=== PATIENT | female | born 1930 | race Caucasian/White ===

== ENCOUNTER 2020-11-21 20:25 | Inpatient (IN) | payer MEDICARE, OTHER ==
--- NOTE | 2020-11-21 21:14 | ED ---
GI Bleed HPI - General Chief complaint: GI Bleed Stated complaint: GI Bleed Time Seen by Provider: 11/21/20 20:57 Source: patient, EMS Mode of arrival: EMS Limitations: no limitations - History of Present Illness Initial comments: This patient is an 89-year-old woman who arrives here as a transfer from [facility]. The patient states that she had gone there because she was passing bloody stools. The patient states this started approximately 11 AM. She had a total of 3 bloody stools, and then she believes she may have passed another one just after arrival here. The patient denies any associated abdominal pain. No nausea or vomiting. She denies history of previous GI bleeding. From the other hospital, the patient had a hemoglobin of 10. INR is 1.0, and the patient denies taking any blood thinning medicines though she does take an aspirin a day. Patient denies history of previous abdominal conditions or any history of GI bleeding. Remainder of the patient's labs largely unremarkable. Other review of systems, the patient denies any other complaints, including symptoms of anemia. MD complaint: gross hematochezia Onset/Timin -: hour(s) Radiation: none Severity scale (1-10): 0 Quality: painless Consistency: constant Improves with: none Worsens with: none Associated Symptoms: denies other symptoms Treatments Prior to Arrival: none - Related Data Home Medications Medication Instructions Recorded Confirmed Aspirin EC [Ecotrin] 325 mg PO DAILY 11/21/20 11/21/20 Atorvastatin Calcium [Lipitor] 20 mg PO Q48H 11/21/20 11/21/20 Cephalexin [Keflex] 500 mg PO DAILY 11/21/20 11/21/20 Cranberry Fruit Extract [Cranberry] 500 mg PO DAILY 11/21/20 11/21/20 Estradiol Cream [Estrace Cream 1 applic VAGINAL MOFR 11/21/20 11/21/20 0.01%] Furosemide [Lasix] 20 mg PO DAILY PRN 11/21/20 11/21/20 Losartan Potassium 100 mg PO DAILY 11/21/20 11/21/20 Methenamine Hippurate 1 gm PO DAILY 11/21/20 11/21/20 Metoprolol Tartrate [Lopressor] 12.5 mg PO BID 11/21/20 11/21/20 Sertraline [Zoloft] 50 mg PO DAILY 11/21/20 11/21/20 Tamsulosin HCl [Flomax] 0.4 mg PO HS 11/21/20 11/21/20 Previous Rx's Medication Instructions Recorded LORazepam [Ativan] 0.25 mg PO BID PRN #6 tab 11/25/20 Pantoprazole Sodium [Protonix] 40 mg PO AC-BRKFST #30 tablet. 11/25/20 Allergies Allergy/AdvReac Type Severity Reaction Status Date / Time codeine AdvReac Unknown Verified 11/21/20 21:56 nitrofurantoin AdvReac Rash/Hives Verified 11/21/20 21:56 Review of Systems ROS Statement: Those systems with pertinent positive or pertinent negative responses have been documented in the HPI. ROS Other: All systems not noted in ROS Statement are negative. Constitutional: Denies: fever, chills, weakness Respiratory: Denies: cough, dyspnea Cardiovascular: Denies: chest pain, palpitations, edema, syncope Gastrointestinal: Reports: hematochezia. Denies: abdominal pain, nausea, vomiting, diarrhea, melena Genitourinary: Denies: dysuria, hematuria Musculoskeletal: Denies: back pain Skin: Denies: rash Neurological: Denies: headache, weakness, numbness Past Medical History Past Medical History: Hyperlipidemia, Hypertension Past Surgical History: Unable to Obtain Additional Past Surgical History / Comment(s): poor historian Past Psychological History: No Psychological Hx Reported Smoking Status: Never smoker Past Alcohol Use History: None Reported Past Drug Use History: None Reported - Past Family History Father Family Medical History: CVA/TIA Mother Family Medical History: Myocardial Infarction ([place]) General Exam Limitations: no limitations General appearance: alert, in no apparent distress Head exam: Present: atraumatic, normocephalic Eye exam: Present: normal appearance. Absent: scleral icterus, conjunctival injection ENT exam: Present: normal oropharynx Neck exam: Present: normal inspection Respiratory exam: Present: normal lung sounds bilaterally. Absent: respiratory distress, wheezes, rales, rhonchi, stridor Cardiovascular Exam: Present: regular rate, normal rhythm, normal heart sounds. Absent: systolic murmur, diastolic murmur, rubs, gallop GI/Abdominal exam: Present: soft. Absent: distended, tenderness, guarding, rebound, rigid, mass Extremities exam: Present: normal inspection, normal capillary refill. Absent: pedal edema, calf tenderness Back exam: Present: normal inspection. Absent: CVA tenderness (R), CVA tenderness (L) Neurological exam: Present: alert Skin exam: Present: warm, dry, intact, normal color. Absent: rash Course Vital Signs 11/21/20 11/21/20 11/21/20 20:42 22:00 23:30 Temperature 97.9 F Pulse Rate 94 89 90 Respiratory 18 16 16 Rate Blood Pressure 134/67 119/55 109/52 O2 Sat by Pulse 99 99 98 Oximetry Medical Decision Making - Lab Data Result diagrams: 11/25/20 08:31 11/25/20 08:50 - EKG Data -: EKG Interpreted by Me EKG shows normal: sinus rhythm, axis (Normal), intervals (Normal), QRS complexes (Normal), ST-T waves (Normal) Rate: normal (Rate 85 bpm) Disposition Clinical Impression: Acute GI bleeding, Anemia Disposition: ADMITTED IP TO THIS [facility] Condition: Stable Is patient prescribed a controlled substance at d/c from ED?: No
[2020-11-21] MEDS ORDERED: ONDANSETRON 4 MG/2 ML VIAL IVP PRN (22:08)
[2020-11-21] MEDS ORDERED: ACETAMINOPHEN TAB 325 MG TAB PO PRN (22:08)
[2020-11-21] MEDS ORDERED: NALOXONE 0.4 MG/ML 1 ML VIAL IV PRN (22:08)
[2020-11-21] MEDS ORDERED: PANTOPRAZOLE 40 MG/10 ML VIAL IVP STA (22:12)
[2020-11-21 22:37] LABS: Basophils % (A) 0 %; Eosinophils % (A) 0 %; HCT 25.5 % (34.0-46.0); HGB 8.8 gm/dL (11.4-16.0); Lymphocytes # (A) 1.2 k/uL (1.0-4.8); Lymphocytes % (A) 16 %; MCH 31.6 pg (25.0-35.0); MCHC 34.4 g/dL (31.0-37.0); Mean Platelet Volume 7.8; Monocytes # (A) 0.3 k/uL (0-1.0); Monocytes % (A) 4 %; Neutrophils # (A) 5.6 k/uL (1.3-7.7); Neutrophils % (A) 78 %; Platelet Count 260 k/uL (150-450); RBC 2.77 m/uL (3.80-5.40); RDW 12.4 % (11.5-15.5); WBC 7.2 k/uL (3.8-10.6)
[2020-11-21] MEDS: SODIUM CHLORIDE 0.9% 1,000 ML IV SCH (23:54)
[2020-11-22] MEDS ORDERED: TAMSULOSIN 0.4 MG CAP.ER.24H PO SCH ×2 (01:30→21:00)
[2020-11-22] MEDS: LORazepam 0.5 MG TAB PO PRN ×2 (01:55→22:46)
[2020-11-22] MEDS: PANTOPRAZOLE 40 MG/10 ML VIAL IVP SCH (08:25)
[2020-11-22] MEDS: METOPROLOL TARTRATE 12.5 MG TAB PO SCH ×2 (08:25→20:34)
[2020-11-22] MEDS: ATORVASTATIN 20 MG TAB PO SCH (08:25)
[2020-11-22 08:27] LABS: Basophils % (A) 0 %; Eosinophils % (A) 0 %; HCT 23.5 % (34.0-46.0); HGB 7.5 gm/dL (11.4-16.0); Lymphocytes # (A) 2.1 k/uL (1.0-4.8); Lymphocytes % (A) 26 %; MCH 30.6 pg (25.0-35.0); MCHC 31.9 g/dL (31.0-37.0); MCV 95.9 fL (80.0-100.0); Mean Platelet Volume 6.6; Monocytes # (A) 0.4 k/uL (0-1.0); Monocytes % (A) 5 %; Neutrophils # (A) 5.3 k/uL (1.3-7.7); Neutrophils % (A) 67 %; Platelet Count 286 k/uL (150-450); RBC 2.45 m/uL (3.80-5.40); RDW 13.1 % (11.5-15.5); WBC 7.9 k/uL (3.8-10.6)
[2020-11-22] MEDS: TAMSULOSIN 0.4 MG CAP.ER.24H PO SCH (08:45)
[2020-11-22 12:31] LABS: African American GFR (CKD) >90 (>60 ml/min/1.73 sqM); Anion Gap 7 mmol/L; Blood Urea Nitrogen 22 mg/dL (7-17); Calcium 8.5 mg/dL (8.4-10.2); Carbon Dioxide 18 mmol/L (22-30); Chloride 105 mmol/L (98-107); Glucose 98 mg/dL (74-99); Non-African American GFR(CKD) 79 (>60 ml/min/1.73 sqM); Potassium 3.9 mmol/L (3.5-5.1); Sodium 130 mmol/L (137-145)
[2020-11-22] MEDS ORDERED: PEG 3350-NA SULF,BICARB,CL/KCL 4,000 ML BOTTLE PO ONE (14:22)
--- NOTE | 2020-11-22 16:13 | CONS ---
CONSULTATION DATE OF DICTATION: 11/22/2020 REASON FOR CONSULTATION: Acute GI bleed. HISTORY OF PRESENT ILLNESS: The patient is an 89-year-old pleasant white female transferred from [facility] when she presented with multiple episodes of maroon-colored stools followed by bright red blood per rectum. She had about 3 episodes at home and she went to the emergency room at [facility], where she had another two episodes, and she was transferred from there late last night. Since being here, she had another 3 episodes of bloody bowel movement. She dropped her hemoglobin from 10 to 7.5 g/dL. She denies any abdominal pain. No nausea, no vomiting. Never had EGD or colonoscopy in the past. She denies any recent NSAID use. No prior history of peptic ulcer disease. Her initial hemoglobin was 10 g/dL. It subsequently dropped to 8.8 and currently is 7.5 g/dL. PAST MEDICAL HISTORY: Significant for hypertension, hyperlipidemia, anxiety, depression. MEDICATIONS: Medications at home include Lasix, Flomax, Ecotrin, Zoloft, Lopressor, losartan, Ativan, Keflex and Lipitor. ALLERGIES: CODEINE and NITROFURANTOIN. SOCIAL HISTORY: No smoking. No alcohol use. FAMILY HISTORY: Unremarkable. PAST SURGICAL HISTORY: Unremarkable. REVIEW OF SYSTEMS: CARDIOPULMONARY: She denies any chest pain or shortness of breath. GENITOURINARY: No dysuria or hematuria. MUSCULOSKELETAL: Unremarkable. SKIN: Unremarkable. ENDOCRINE: Unremarkable. PSYCHIATRIC: Unremarkable other than anxiety. NEUROLOGY: Unremarkable. ENT/VISION: Unremarkable. CONSTITUTIONAL: No recent weight loss. No fever, chills, night sweats. PHYSICAL EXAMINATION: She appears comfortable. No apparent distress. VITAL SIGNS: Stable. Blood pressure 106/55, pulse rate 83, temperature 98.1. HEENT examination unremarkable. Conjunctivae pink. Sclerae anicteric. Oral cavity no lesions. NECK: No JVD or lymph node enlargement. CHEST: Clear to auscultation. HEART: Regular rate and rhythm. ABDOMEN: Soft. Bowel sounds are positive. No organomegaly. EXTREMITIES: No pedal edema. NEUROLOGIC: Alert and oriented x3. No focal deficits. LAB: Hemoglobin 8.8. Today it is 7.5. Platelets normal. Basic metabolic panel is within normal limits. IMPRESSION: Acute gastrointestinal bleed, possibly lower in etiology, but at this time an upper GI source cannot be excluded. The patient had several episodes of bright red blood per rectum as well as maroon-colored stool since yesterday morning. Never had EGD, colonoscopy in the past. No history of peptic ulcer disease and she denies any NSAID use. Her hemoglobin dropped from 10 to 7.5 g/dL and she continues to have active ongoing bleeding. RECOMMENDATIONS: 1. Continue with Protonix 40 mg twice daily. 2. Clear liquid diet. 3. Will proceed with EGD and colonoscopy tomorrow. 4. Will give her one unit of PRBC transfusion because of active bleeding. 5. Repeat CBC in the morning. Will follow with you closely. Thank you for this consultation. MMODL / IJN: [id number] /
[2020-11-22] MEDS: SODIUM CHLORIDE 0.9% 1,000 ML IV SCH ×2 (18:22→20:37)
--- NOTE | 2020-11-22 20:17 | P.HPIM ---
History of Present Illness H&P Date: 11/22/20 Chief Complaint: Rectal bleed Patient is a 89-year-old female with a known history of hypertension, hyperlipidemia presents to ER with a complaints of rectal bleeding. Patient states that she woke yesterday morning and felt somewhat weak. Around 11 AM patient started having blood per rectum and was passing blood clots. Patient went to [facility] and was sent to [facility] for GI evaluation. Denies any history of prior colonoscopy or GI bleed. Patient states that she is passed a total of 3 bloody stools. Currently denies any active bleeding. Hemoglobin at [facility] was 10 and INR 1.0. Patient denied any [id number] pain medication use. Denied any tarry colored stools. Patient does take aspirin daily. No history of previous GI bleed. Patient denied any abdominal pain. No dysuria or hematuria. No recent illnesses or sick contacts. No recent travel.No complaints of chest pain or shortness of breath. Laboratory data showed WBC 7.2 hemoglobin 8.8 MCV 92.0 and platelets 260 Sodium 130 potassium 3.9 chloride 104 bicarb is 18 BUN 22 and creatinine 0.64 and coronavirus PCR not detected EKG showed normal sinus rhythm Review of Systems Constitutional: Patient denies any fever or chills . No generalized weakness or weight loss. Abdomen: Patient denied nausea vomiting and diarrhea and abdominal pain.Patient does have blood per rectum. Cardiovascular: Patient denies any chest pain or short of breath no palpitations. Respiratory: patient denied any cough or sputum production. No shortness of breath Neurologic: Patient denied any numbness or tingling headache. Musculoskeletal: Patient denies any complaints of joint swelling or deformity. Skin: Negative Psychiatric: Negative Endocrine: No heat or cold intolerance. No recent weight gain. Genitourinary: No dysuria or hematuria. All other 14 point ROS negative except the above Past Medical History Past Medical History: Hyperlipidemia, Hypertension Additional Past Medical History / Comment(s): FREQ UTI'S History of Any Multi-Drug Resistant Organisms: None Reported Past Surgical History: No Surgical Hx Reported, Unable to Obtain Additional Past Surgical History / Comment(s): poor historian Past Anesthesia/Blood Transfusion Reactions: No Reported Reaction Past Psychological History: No Psychological Hx Reported Smoking Status: Never smoker Past Alcohol Use History: None Reported Past Drug Use History: None Reported - Past Family History Father Family Medical History: CVA/TIA Mother Family Medical History: Myocardial Infarction ([place]) Medications and Allergies Home Medications Medication Instructions Recorded Confirmed Type Aspirin EC [Ecotrin] 325 mg PO DAILY 11/21/20 11/21/20 History Atorvastatin Calcium [Lipitor] 20 mg PO Q48H 11/21/20 11/21/20 History Cephalexin [Keflex] 500 mg PO DAILY 11/21/20 11/21/20 History Cranberry Fruit Extract [Cranberry] 500 mg PO DAILY 11/21/20 11/21/20 History Estradiol Cream [Estrace Cream 1 applic VAGINAL MOFR 11/21/20 11/21/20 History 0.01%] Furosemide [Lasix] 20 mg PO DAILY PRN 11/21/20 11/21/20 History LORazepam [Ativan] 0.25 mg PO BID PRN 11/21/20 11/21/20 History Losartan Potassium 100 mg PO DAILY 11/21/20 11/21/20 History Methenamine Hippurate 1 gm PO DAILY 11/21/20 11/21/20 History Metoprolol Tartrate [Lopressor] 12.5 mg PO BID 11/21/20 11/21/20 History Sertraline [Zoloft] 50 mg PO DAILY 11/21/20 11/21/20 History Tamsulosin HCl [Flomax] 0.4 mg PO HS 11/21/20 11/21/20 History Allergies Allergy/AdvReac Type Severity Reaction Status Date / Time codeine AdvReac Unknown Verified 11/21/20 21:56 nitrofurantoin AdvReac Rash/Hives Verified 11/21/20 21:56 Physical Exam Vitals: Vital Signs Temp Pulse Pulse Resp BP BP Pulse Ox 11/22/20 08:20 98.1 F 83 16 106/55 97 11/22/20 08:00 83 16 11/22/20 04:00 97.8 F 93 18 90/48 96 11/22/20 02:00 94 16 11/22/20 00:25 97.7 F 94 18 101/55 100 11/21/20 23:30 90 16 109/52 98 11/21/20 22:00 89 16 119/55 99 11/21/20 20:42 97.9 F 94 18 134/67 99 Intake and Output 11/21/20 11/22/20 11/22/20 22:59 06:59 14:59 Output Total 500 Balance -500 Output: Urine 100 Stool 400 Other: Voiding Method Toilet Toilet # Voids 1 # Bowel Movements 1 Weight 68.039 kg 68 kg PHYSICAL EXAMINATION: Patient is lying in the bed comfortably, no acute distress, awake alert and oriented.. HEENT: Normocephalic. Neck is supple. Pupils reactive. Nostrils clear. Oral cavity is moist. Ears reveal no drainage. Neck reveals no JVD, carotid bruits, or thyromegaly. CHEST EXAMINATION: Trachea is central. Symmetrical expansion. Lung luque clear to auscultation and percussion. CARDIAC: Normal S1, S2 with no gallops. No murmurs ABDOMEN: Soft. Bowel sounds normal. No organomegaly. No abdominal bruits. Extremities: reveal no edema. No clubbing or cyanosis Neurologically awake, alert, oriented x3 with well-coordinated movements. No focal deficits noted Skin: No rash or skin lesions. Psychiatric: Coperative. Nonsuicidal Musculoskeletal: No joint swelling or deformity. Normal range of motion. Results CBC & Chem 7: 11/22/20 07:31 11/22/20 11:49 Labs: Abnormal Lab Results - Last 24 Hours (Table) 11/21/20 11/22/20 Range/Units 22:29 07:31 RBC 2.77 L 2.45 L (3.80-5.40) m/uL Hgb 8.8 L 7.5 L (11.4-16.0) gm/dL Hct 25.5 L 23.5 L (34.0-46.0) % Thrombosis Risk Factor Assmnt - DVT/VTE Prophylaxis DVT/VTE Prophylaxis: Mechanical Prophylaxis ordered - Choose All That Apply Each Risk Factor Represents 3 Points: Age 75 years or older Thrombosis Risk Factor Assessment Total Risk Factor Score: 3 Thrombosis Risk Factor Assessment Level: Moderate Risk Assessment and Plan Assessment: Acute GI bleed/rectal bleed likely diverticular bleed. Acute blood loss anemia Symptomatic anemia Hypertension Hyperlipidemia DVT prophylaxis with SCDs Plan: Patient will be continued on IV hydration and Protonix IV daily. Continue to monitor H&H and transfuse if the hemoglobin level is less than 7. Gastroenterology service was consulted.. Aspirin is on hold and continue with other home medications and follow-up closely. Further recommendations based on clinical course. Discussed with the patient in detail. Gastroenterology is planning for colonoscopy tomorrow. Time with Patient: Greater than 30
[2020-11-22 22:45] LABS: Basophils % (A) 0 %; Eosinophils # (A) 0.1 k/uL (0-0.7); Eosinophils % (A) 1 %; HCT 24.5 % (34.0-46.0); HGB 8.7 gm/dL (11.4-16.0); Lymphocytes # (A) 1.1 k/uL (1.0-4.8); Lymphocytes % (A) 14 %; MCH 32.6 pg (25.0-35.0); MCHC 35.5 g/dL (31.0-37.0); MCV 91.9 fL (80.0-100.0); Mean Platelet Volume 6.8; Monocytes # (A) 0.6 k/uL (0-1.0); Monocytes % (A) 8 %; Neutrophils # (A) 5.8 k/uL (1.3-7.7); Neutrophils % (A) 76 %; Platelet Count 240 k/uL (150-450); RBC 2.67 m/uL (3.80-5.40); RDW 12.7 % (11.5-15.5); WBC 7.7 k/uL (3.8-10.6)
[2020-11-23] MEDS ORDERED: IV FLUID CONTINUATION 1,000 ML IV ONE (08:04)
[2020-11-23] MEDS ORDERED: PROPOFOL 10 MG/ML 20 ML VIAL IV ONE (08:10)
[2020-11-23] MEDS ORDERED: EPINEPHrine 10 ML SYRINGE (0.1 MG/ML) MISCELLANE ONE (08:42)
--- NOTE | 2020-11-23 08:46 | P.PCN ---
Date of Procedure: 11/23/20 Procedure(s) Performed: Brief history: Patient is a pleasant 89-year-old pleasant white female admitted hospital with acute GI bleed. She had multiple episodes of what constitutes followed by bright red blood per rectum and Hemoglobin of 7.5 g/dL requiring a flat ulceration. She is hence scheduled for an upper endoscopy as well as colonoscopy to evaluate further. Procedure performed: Esophagogastroduodenoscopy with biopsy Colonoscopy with injection epinephrine and Endo Clip placement Preoperative diagnosis: Acute GI bleed Anesthesia: MAC Procedure: After informed consent was obtained from the patient was brought into the endoscopy unit and IV sedation was administered by anesthesia under continuous monitoring. Initially upper endoscopy was done. The Olympus GF 160 video endoscope was inserted inserted into the mouth and esophagus intubated without any difficulty and was gradually advanced into the stomach and duodenum and carefully examined. The bulb and second part of the duodenum appeared normal. The scope was then withdrawn into the stomach adequately insufflated with air and upon careful examination the antrum had a 5 mm clean-based ulcer with no active bleeding and biopsies were done from this area. The body, cardia and fundus appeared normal. The scope was then withdrawn into the esophagus. The GE junction was located at 40 cm to the incisors. It appeared regular with no erythema erosions or ulcerations. Rest of the esophagus appeared normal. Patient tolerated the procedure well. At this time the patient continued to remain sedation. Initial digital rectal examination was normal. Olympus CF 160 video colonoscope was then inserted into the rectum and gradually advanced to the cecum without any difficulty. Careful examination was performed as the scope was gradually being withdrawn. The prep was excellent. There was thin liquid blood noted throughout the entire colon. Thorough irrigation was performed. The cecum, ascending colon, transverse colon, descending colon, appeared normal. In the proximal sigmoid colon at 35 cm from the anal verge there was an actively bleeding diverticulum noted. At this time 1 in 10,000 epinephrine was injected into the diverticulum and good hemostasis was achieved. Following this Endo Clip was placed blindly into the diverticulum and still good hemostasis was achieved. Large clot noted in the sigmoid colon that was thoroughly irrigated. There was sigmoid colon and rectum appeared normal. Retroflexion was performed in the rectum and no lesions were noted. Patient tolerated the procedure well. Impression: 1. Upper endoscopy revealed 5 mm antral ulcer with no active bleeding 2. Colonoscopy revealed extensive left-sided diverticulosis, with one of the diverticulum in the sigmoid colon at 35 cm from the anal verge that was actively bleeding, status post injection epinephrine and Endo Clip placement with good hemostasis Recommendations: Findings of this examination were discussed with the patient . she will be started on a clear liquid diet. Monitor CBC every 6 hours and transfuse as needed. .
[2020-11-23] MEDS: TAMSULOSIN 0.4 MG CAP.ER.24H PO SCH (10:06)
[2020-11-23] MEDS: METOPROLOL TARTRATE 12.5 MG TAB PO SCH ×2 (10:06→20:06)
[2020-11-23] MEDS: PANTOPRAZOLE 40 MG/10 ML VIAL IVP SCH (10:06)
[2020-11-23 12:47] LABS: Calcium 8.1 mg/dL (8.4-10.2)
[2020-11-23 12:48] LABS: MCH 30.9 pg (25.0-35.0); MCHC 32.6 g/dL (31.0-37.0); MCV 94.9 fL (80.0-100.0); Mean Platelet Volume 6.9; Platelet Count 221 k/uL (150-450); RBC 2.11 m/uL (3.80-5.40); RDW 13.7 % (11.5-15.5); WBC 6.5 k/uL (3.8-10.6)
[2020-11-23 12:54] LABS: HGB 6.5 gm/dL (11.4-16.0)
[2020-11-23] MEDS: LORazepam 0.5 MG TAB PO PRN (20:06)
[2020-11-23] MEDS: SODIUM CHLORIDE 0.9% 1,000 ML IV SCH (20:07)
[2020-11-23] MEDS: POTASSIUM CHLORIDE 10 MEQ in WATER FOR INJECTION 1 100ML.BAG IVPB SCH (23:11)
[2020-11-24] MEDS: POTASSIUM CHLORIDE 10 MEQ in WATER FOR INJECTION 1 100ML.BAG IVPB SCH (00:12)
[2020-11-24] MEDS: SODIUM CHLORIDE 0.9% 1,000 ML IV SCH ×2 (04:08→19:02)
[2020-11-24] MEDS: PANTOPRAZOLE 40 MG/10 ML VIAL IVP SCH (08:06)
[2020-11-24] MEDS: METOPROLOL TARTRATE 12.5 MG TAB PO SCH ×2 (08:06→21:19)
[2020-11-24] MEDS: TAMSULOSIN 0.4 MG CAP.ER.24H PO SCH (08:07)
[2020-11-24] MEDS: ATORVASTATIN 20 MG TAB PO SCH (08:07)
--- NOTE | 2020-11-24 08:51 | PN ---
PROGRESS NOTE DATE OF SERVICE: 11/24/2020 Patient is an 89-year-old pleasant white female admitted to the hospital with acute lower GI bleed. She underwent EGD and colonoscopy yesterday. Colonoscopy revealed actively bleeding sigmoid diverticula and epinephrine was injected and Endoclip was placed and bleeding subsided. The patient since has been doing well. She had no further episodes of bleeding. She did drop her hemoglobin to 6.5 g/dL yesterday and was given another unit of blood transfusion. Repeat CBC this morning is still pending. She reports no abdominal pain. No dizziness. PHYSICAL EXAMINATION: GENERAL: She appears comfortable. No apparent distress. VITAL SIGNS: Stable. Blood pressure 122/86, pulse rate 75, afebrile. HEENT: Examination unremarkable. Conjunctivae are pink. Sclerae anicteric. Oral cavity no lesions. NECK: No JVD or lymph node enlargement. CHEST: Clear to auscultation. HEART: Regular rate and rhythm. ABDOMEN: Soft, it was nontender, nondistended. Bowel sounds are positive. No organomegaly. EXTREMITIES: No pedal edema. NEURO: She is alert and oriented x3. No focal deficits. LABS: No labs available from today but yesterday hemoglobin was 6.5 g/dL. IMPRESSION: Acute lower GI bleed, diverticular in nature, status post EGD and colonoscopy yesterday. Colonoscopy revealed actively bleeding sigmoid diverticulosis, status post injection of epinephrine with Endoclip placement. Hemostasis achieved. The patient has no further bleeding. Repeat CBC this morning is still pending. RECOMMENDATIONS: 1. Await CBC results. 2. Advance to full liquid diet. 3. Repeat labs in the morning. We will follow with you closely. If she has no further bleeding, she can be discharged home tomorrow. Thank you for this consultation. MMODL / IJN: [id number] /
[2020-11-24 11:34] LABS: Basophils % (A) 0 %; Eosinophils % (A) 1 %; HGB 7.1 gm/dL (11.4-16.0); Lymphocytes # (A) 1.5 k/uL (1.0-4.8); Lymphocytes % (A) 29 %; MCH 32.1 pg (25.0-35.0); MCHC 35.3 g/dL (31.0-37.0); Mean Platelet Volume 6.9; Monocytes # (A) 0.4 k/uL (0-1.0); Monocytes % (A) 7 %; Neutrophils # (A) 3.2 k/uL (1.3-7.7); Neutrophils % (A) 62 %; Platelet Count 176 k/uL (150-450); RDW 13.5 % (11.5-15.5); WBC 5.2 k/uL (3.8-10.6)
[2020-11-24 15:38] LABS: African American GFR (CKD) >90 (>60 ml/min/1.73 sqM); Anion Gap 6 mmol/L; Blood Urea Nitrogen 9 mg/dL (7-17); Calcium 8.2 mg/dL (8.4-10.2); Carbon Dioxide 19 mmol/L (22-30); Chloride 106 mmol/L (98-107); Glucose 92 mg/dL (74-99); Non-African American GFR(CKD) 79 (>60 ml/min/1.73 sqM); Potassium 3.2 mmol/L (3.5-5.1); Sodium 131 mmol/L (137-145)
[2020-11-24] MEDS ORDERED: Potassium Replacement Protocol 1 EACH MISC MISCELLANE PRN (17:33)
[2020-11-24] MEDS: POTASSIUM CHLORIDE ER 20 MEQ TAB.ER PO SCH ×2 (19:02→21:19)
[2020-11-24] MEDS: LORazepam 0.5 MG TAB PO PRN (21:22)
[2020-11-25] MEDS ORDERED: LORazepam 0.5 MG TAB PO STA (03:13)
[2020-11-25 03:45] VITALS: RESP 18
[2020-11-25] MEDS: SODIUM CHLORIDE 0.9% 1,000 ML IV SCH ×2 (06:22→12:05)
[2020-11-25 08:44] VITALS: TEMP 97.6
[2020-11-25] MEDS: TAMSULOSIN 0.4 MG CAP.ER.24H PO SCH (08:45)
[2020-11-25] MEDS: METOPROLOL TARTRATE 12.5 MG TAB PO SCH (08:45)
[2020-11-25] MEDS: PANTOPRAZOLE 40 MG/10 ML VIAL IVP SCH (08:45)
[2020-11-25] MEDS ORDERED: CEPHALEXIN 500 MG CAP PO SCH (09:00)
[2020-11-25 09:09] LABS: HCT 28.9 % (34.0-46.0); MCH 31.5 pg (25.0-35.0); MCHC 33.8 g/dL (31.0-37.0); MCV 93.4 fL (80.0-100.0); Mean Platelet Volume 6.8; Platelet Count 224 k/uL (150-450); RDW 13.9 % (11.5-15.5); WBC 7.5 k/uL (3.8-10.6)
[2020-11-25 09:13] LABS: HGB 9.8 gm/dL (11.4-16.0)
[2020-11-25 11:08] VITALS: BP 175/71; PULSE 86
[2020-11-25] MEDS ORDERED: LOSARTAN 50 MG TAB PO SCH (11:30)
[2020-11-25] MEDS ORDERED: POTASSIUM CHLORIDE ER 20 MEQ TAB.ER PO STA (11:50)
--- NOTE | 2020-11-25 12:20 | P.PN ---
Subjective Progress Note Date: 11/23/20 Principal diagnosis: Acute GI bleed diverticular Patient is a 89-year-old female with a known history of hypertension, hyperlipidemia presents to ER with a complaints of rectal bleeding. Patient states that she woke yesterday morning and felt somewhat weak. Around 11 AM patient started having blood per rectum and was passing blood clots. Patient went to [facility] and was sent to [facility] for GI evaluation. Denies any history of prior colonoscopy or GI bleed. Patient states that she is passed a total of 3 bloody stools. Currently denies any active bleeding. Hemoglobin at [facility] was 10 and INR 1.0. Patient denied any jrgb-pne-irzvlwh pain medication use. Denied any tarry colored stools. Patient does take aspirin daily. No history of previous GI bleed. Patient denied any abdominal pain. No dysuria or hematuria. No recent illnes ses or sick contacts. No recent travel.No complaints of chest pain or shortness of breath. Laboratory data showed WBC 7.2 hemoglobin 8.8 MCV 92.0 and platelets 260 Sodium 130 potassium 3.9 chloride 104 bicarb is 18 BUN 22 and creatinine 0.64 and coronavirus PCR not detected EKG showed normal sinus rhythm 11/23/2020 Patient is currently lying in the bed. No complaints of abdominal pain. No fu rther episodes of bleeding. Patient is status post procedure. 1. Upper endoscopy revealed 5 mm antral ulcer with no active bleeding 2. Colonoscopy revealed extensive left-sided diverticulosis, with one of the diverticulum in the sigmoid colon at 35 cm from the anal verge that was actively bleeding, status post injection epinephrine and Endo Clip placement with good hemostasis. Hemoglobin is 6.1 today. Patient is being transfused with 1 unit of PRBC. No headache or dizziness or lightheadedness. Next and no chest pain or shortness of breath. Current medications reviewed. Objective - Vital Signs Vital signs: Vital Signs Temp 98.1 F 11/23/20 15:29 Pulse 81 11/23/20 15:29 Resp 18 11/23/20 15:29 BP 130/59 11/23/20 15:29 Pulse Ox 95 11/23/20 15:29 Intake & Output 11/22/20 11/23/20 11/23/20 18:59 06:59 18:59 Intake Total 375 910 340 Output Total 1500 3 400 Balance -1125 907 -60 Weight 69.8 kg Intake: IV 100 Intake, IV Titration 600 Amount Sodium Chloride 0.9% 1, 600 000 ml @ 75 mls/hr IV . [id number] Rx#:[id number] Oral 375 240 Blood Product 0 310 0 Rc As-1 Unit 0 310 [id number] Rc As-1 Unit 0 [id number] Output: Urine 100 400 Stool 800 Urine/Stool Mix 600 3 Other: Voiding Method Toilet Bedside Commode Bedside Commode # Voids 1 # Bowel Movements 1 - Exam PHYSICAL EXAMINATION: Patient is lying in the bed comfortably, no acute distress, awake alert and oriented.. HEENT: Normocephalic. Neck is supple. Pupils reactive. Nostrils clear. Oral cavity is moist. Ears reveal no drainage. Neck reveals no JVD, carotid bruits, or thyromegaly. CHEST EXAMINATION: Trachea is central. Symmetrical expansion. Lung luque clear to auscultation and percussion. CARDIAC: Normal S1, S2 with no gallops. No murmurs ABDOMEN: Soft. Bowel sounds normal. No organomegaly. No abdominal bruits. Extremities: reveal no edema. No clubbing or cyanosis Neurologically awake, alert, oriented x3 with well-coordinated movements. No focal deficits noted Skin: No rash or skin lesions. Psychiatric: Coperative. Nonsuicidal Musculoskeletal: No joint swelling or deformity. Normal range of motion. - Labs CBC & Chem 7: 11/25/20 08:31 11/24/20 11:08 Labs: Abnormal Lab Results - Last 24 Hours (Table) 11/21/20 11/22/20 11/23/20 Range/Units 22:20 22:25 10:47 RBC 2.67 L 2.11 L (3.80-5.40) m/uL Hgb 8.7 L 6.5 L* D (11.4-16.0) gm/dL Hct 24.5 L 20.0 L (34.0-46.0) % Sodium (137-145) mmol/L Potassium (3.5-5.1) mmol/L Carbon Dioxide (22-30) mmol/L Glucose (74-99) mg/dL Calcium (8.4-10.2) mg/dL Crossmatch See Detail 11/23/20 Range/Units 10:47 RBC (3.80-5.40) m/uL Hgb (11.4-16.0) gm/dL Hct (34.0-46.0) % Sodium 133 L (137-145) mmol/L Potassium 3.0 L (3.5-5.1) mmol/L Carbon Dioxide 21 L (22-30) mmol/L Glucose 114 H (74-99) mg/dL Calcium 8.1 L (8.4-10.2) mg/dL Crossmatch Assessment and Plan Assessment: Acute GI bleed/rectal bleed likely diverticular bleed. Colonoscopy showed active bleeding status post Endo Clip. Antral ulcer with no active bleeding. Acute blood loss anemia Symptomatic anemia Hypertension Hyperlipidemia DVT prophylaxis with SCDs Plan: Patient will be continued on IV hydration and Protonix IV daily. Continue to monitor H&H and transfuse if the hemoglobin level is less than 7. Gastroenterology service was consulted.. Aspirin is on hold and continue with o ther home medications and follow-up closely. Further recommendations based on clinical course. Discussed with the patient in detail. Nephrology Is Following. Status Post EGD and Colonoscopy. .1. Upper endoscopy revealed 5 mm antral ulcer with no active bleeding 2. Colonoscopy revealed extensive left-sided diverticulosis, with one of the diverticulum in the sigmoid colon at 35 cm from the anal verge that was actively bleeding, status post injection epinephrine and Endo Clip placement with good hemostasis Time with Patient: Greater than 30
--- NOTE | 2020-11-25 12:22 | P.PN ---
Subjective Progress Note Date: 11/24/20 Principal diagnosis: Acute GI bleed diverticular Patient is a 89-year-old female with a known history of hypertension, hyperlipidemia presents to ER with a complaints of rectal bleeding. Patient states that she woke yesterday morning and felt somewhat weak. Around 11 AM patient started having blood per rectum and was passing blood clots. Patient went to [facility] and was sent to [facility] for GI evaluation. Denies any history of prior colonoscopy or GI bleed. Patient states that she is passed a total of 3 bloody stools. Currently denies any active bleeding. Hemoglobin at [facility] was 10 and INR 1.0. Patient denied any cwxg-[id number] pain medication use. Denied any tarry colored stools. Patient does take aspirin daily. No history of previous GI bleed. Patient denied any abdominal pain. No dysuria or hematuria. No recent illnes ses or sick contacts. No recent travel.No complaints of chest pain or shortness of breath. Laboratory data showed WBC 7.2 hemoglobin 8.8 MCV 92.0 and platelets 260 Sodium 130 potassium 3.9 chloride 104 bicarb is 18 BUN 22 and creatinine 0.64 and coronavirus PCR not detected EKG showed normal sinus rhythm 11/23/2020 Patient is currently lying in the bed. No complaints of abdominal pain. No fu rther episodes of bleeding. Patient is status post procedure. 1. Upper endoscopy revealed 5 mm antral ulcer with no active bleeding 2. Colonoscopy revealed extensive left-sided diverticulosis, with one of the diverticulum in the sigmoid colon at 35 cm from the anal verge that was actively bleeding, status post injection epinephrine and Endo Clip placement with good hemostasis. Hemoglobin is 6.1 today. Patient is being transfused with 1 unit of PRBC. No headache or dizziness or lightheadedness. Next and no chest pain or shortness of breath. 11/24/2020 Patient is currently lying in the bed comfortably. No further episodes of rectal bleeding. No cough is from production. No chest pain or shortness. No abdominal pain. Hemoglobin is 7.1 today. Patient will be transfused with 1 unit of PRBC and monitor hemoglobin for another 24 hours. GEN is on board. Advance diet as tolerated. Denied any abdominal pain. Admit PPI and encourage oral intake. Current medications reviewed. Objective - Vital Signs Vital signs: Vital Signs Temp 98 F 11/24/20 15:46 Pulse 74 11/24/20 15:46 Resp 16 11/24/20 15:46 BP 105/54 11/24/20 15:46 Pulse Ox 100 11/24/20 15:46 Intake & Output 11/23/20 11/24/20 11/24/20 18:59 06:59 18:59 Intake Total 199 726 1373 Output Total 900 300 Balance -10 800 1118 Weight 70.896 kg Intake: IV 100 Intake, IV Titration 800 600 Amount Potassium Chloride 10 meq 200 In Water For Injection 1 100ml.bag @ 100 mls/hr IVPB Q1H [facility] Rx#: [id number] Sodium Chloride 0.9% 1, 600 600 000 ml @ 75 mls/hr IV . [id number] [facility] Rx#:[id number] Oral 480 818 Blood Product 310 0 Rc As-1 Unit 310 [id number] Rc As-1 Unit 0 [id number] Output: Urine 900 300 Other: Voiding Method Bedside Commode Bedside Commode Bedside Commode # Voids 1 - Exam PHYSICAL EXAMINATION: Patient is lying in the bed comfortably, no acute distress, awake alert and oriented.. HEENT: Normocephalic. Neck is supple. Pupils reactive. Nostrils clear. Oral cavity is moist. Ears reveal no drainage. Neck reveals no JVD, carotid bruits, or thyromegaly. CHEST EXAMINATION: Trachea is central. Symmetrical expansion. Lung luque clear to auscultation and percussion. CARDIAC: Normal S1, S2 with no gallops. No murmurs ABDOMEN: Soft. Bowel sounds normal. No organomegaly. No abdominal bruits. Extremities: reveal no edema. No clubbing or cyanosis Neurologically awake, alert, oriented x3 with well-coordinated movements. No focal deficits noted Skin: No rash or skin lesions. Psychiatric: Coperative. Nonsuicidal Musculoskeletal: No joint swelling or deformity. Normal range of motion. - Labs CBC & Chem 7: 11/25/20 08:31 11/24/20 11:08 Labs: Abnormal Lab Results - Last 24 Hours (Table) 11/21/20 11/24/20 11/24/20 Range/Units 22:20 11:08 11:08 RBC 2.20 L (3.80-5.40) m/uL Hgb 7.1 L (11.4-16.0) gm/dL Hct 20.0 L (34.0-46.0) % Sodium 131 L (137-145) mmol/L Potassium 3.2 L (3.5-5.1) mmol/L Carbon Dioxide 19 L (22-30) mmol/L Calcium 8.2 L (8.4-10.2) mg/dL Crossmatch See Detail Assessment and Plan Assessment: Acute GI bleed/rectal bleed likely diverticular bleed. Colonoscopy showed active bleeding status post Endo Clip. Antral ulcer with no active bleeding. Acute blood loss anemia Symptomatic anemia Hypertension Hyperlipidemia DVT prophylaxis with SCDs Plan: Patient will be continued on IV hydration and Protonix IV daily. Continue to monitor H&H and transfuse if the hemoglobin level is less than 7. Gastroenterology service was consulted.. Aspirin is on hold and continue with other home medications and follow-up closely. Further recommendations based on clinical course. Discussed with the patient in detail. Nephrology Is Following. Status Post EGD and Colonoscopy. .1. Upper endoscopy revealed 5 mm antral ulcer with no active bleeding 2. Colonoscopy revealed extensive left-sided diverticulosis, with one of the diverticulum in the sigmoid colon at 35 cm from the anal verge that was actively bleeding, status post injection epinephrine and Endo Clip placement with good hemostasis Time with Patient: Greater than 30
--- NOTE | 2020-11-25 12:24 | P.DS ---
Providers Date of admission: 11/21/20 22:09 Expected date of discharge: 11/25/20 Attending physician: Ty Christianson Consults: 11/21/20 22:10 Consult Physician Routine Consulting Provider: Sonali Barr Consult Reason/Comments: Acute GI Bleed Do you want consulting provider notified?: Yes Primary care physician: Deshawn Bajwa MD Hospital Course: Discharge diagnosis Acute GI bleed/rectal bleed likely diverticular bleed. Colonoscopy showed active bleeding status post Endo Clip. Antral ulcer with no active bleeding. Acute blood loss anemia Symptomatic anemia Hypertension Hyperlipidemia DVT prophylaxis with SCDs Hospital course Patient is a 89-year-old female with a known history of hypertension, hyperlipidemia presents to ER with a complaints of rectal bleeding. Patient states that she woke yesterday morning and felt somewhat weak. Around 11 AM patient started having blood per rectum and was passing blood clots. Patient went to [facility] and was sent to [facility] for GI evaluation. Denies any history of prior colonoscopy or GI bleed. Patient states that she is passed a total of 3 bloody stools. Currently denies any active bleeding. Hemoglobin at [facility] was 10 and INR 1.0. Patient denied any syqd-qcf-yxoqgqg pain medication use. Denied any tarry colored stools. Patient does take aspirin daily. No history of previous GI bleed. Patient denied any abdominal pain. No dysuria or hematuria. No recent illnesses or sick contacts. No recent travel.No complaints of chest pain or shortness of breath. Laboratory data showed WBC 7.2 hemoglobin 8.8 MCV 92.0 and platelets 260 Sodium 130 potassium 3.9 chloride 104 bicarb is 18 BUN 22 and creatinine 0.64 and coronavirus PCR not detected EKG showed normal sinus rhythm 11/23/2020 Patient is currently lying in the bed. No complaints of abdominal pain. No further episodes of bleeding. Patient is status post procedure. 1. Upper endoscopy revealed 5 mm antral ulcer with no active bleeding 2. Colonoscopy revealed extensive left-sided diverticulosis, with one of the diverticulum in the sigmoid colon at 35 cm from the anal verge that was actively bleeding, status post injection epinephrine and Endo Clip placement with good hemostasis. Hemoglobin is 6.1 today. Patient is being transfused with 1 unit of PRBC. No headache or dizziness or lightheadedness. Next and no chest pain or shortness of breath. 11/24/2020 Patient is currently lying in the bed comfortably. No further episodes of rectal bleeding. No cough is from production. No chest pain or shortness. No abdominal pain. Hemoglobin is 7.1 today. Patient will be transfused with 1 unit of PRBC and monitor hemoglobin for another 24 hours. GEN is on board. Advance diet as tolerated. Denied any abdominal pain. Admit PPI and encourage oral intake. 11/25/2020 Patient is currently sitting in a chair comfortably. No further episodes of rectal bleeding. Hemoglobin is stable and improved to 9.8 today. Potassium is being replaced. 3.2, encourage oral intake. Patient will be continued on PPI due to gastric antral ulcer. Follow with GI as an outpatient. Patient is being discharged to rehab today. PHYSICAL EXAMINATION: Patient is lying in the bed comfortably, no acute distress, awake alert and oriented.. HEENT: Normocephalic. Neck is supple. Pupils reactive. Nostrils clear. Oral cavity is moist. Ears reveal no drainage. Neck reveals no JVD, carotid bruits, or thyromegaly. CHEST EXAMINATION: Trachea is central. Symmetrical expansion. Lung luque clear to auscultation and percussion. CARDIAC: Normal S1, S2 with no gallops. No murmurs ABDOMEN: Soft. Bowel sounds normal. No organomegaly. No abdominal bruits. Extremities: reveal no edema. No clubbing or cyanosis Neurologically awake, alert, oriented x3 with well-coordinated movements. No focal deficits noted Skin: No rash or skin lesions. Psychiatric: Coperative. Nonsuicidal Musculoskeletal: No joint swelling or deformity. Normal range of motion. Vital Signs - 8 hr 11/25/20 11/25/20 08:00 11:04 Temperature 97.6 F Pulse Rate [ 89 86 Right Pulse Oximetery] Respiratory 18 18 Rate Blood Pressure 143/65 175/71 [Right Arm Supine] O2 Sat by Pulse 97 97 Oximetry Patient Condition at Discharge: Stable Plan - Discharge Summary Discharge Rx Participant: No New Discharge Prescriptions: New Pantoprazole Sodium [Protonix] 40 mg PO AC-BRKFST #30 tablet. Continue Tamsulosin HCl [Flomax] 0.4 mg PO HS Sertraline [Zoloft] 50 mg PO DAILY Metoprolol Tartrate [Lopressor] 12.5 mg PO BID Losartan Potassium 100 mg PO DAILY Estradiol Cream [Estrace Cream 0.01%] 1 applic VAGINAL MOFR Furosemide [Lasix] 20 mg PO DAILY PRN PRN Reason: Edema Aspirin EC [Ecotrin] 325 mg PO DAILY Methenamine Hippurate 1 gm PO DAILY LORazepam [Ativan] 0.25 mg PO BID PRN PRN Reason: Anxiety Cephalexin [Keflex] 500 mg PO DAILY Atorvastatin Calcium [Lipitor] 20 mg PO Q48H Cranberry Fruit Extract [Cranberry] 500 mg PO DAILY Discharge Medication List Aspirin EC [Ecotrin] 325 mg PO DAILY 11/21/20 [History] Atorvastatin Calcium [Lipitor] 20 mg PO Q48H 11/21/20 [History] Cephalexin [Keflex] 500 mg PO DAILY 11/21/20 [History] Cranberry Fruit Extract [Cranberry] 500 mg PO DAILY 11/21/20 [History] Estradiol Cream [Estrace Cream 0.01%] 1 applic VAGINAL MOFR 11/21/20 [History] Furosemide [Lasix] 20 mg PO DAILY PRN 11/21/20 [History] LORazepam [Ativan] 0.25 mg PO BID PRN 11/21/20 [History] Losartan Potassium 100 mg PO DAILY 11/21/20 [History] Methenamine Hippurate 1 gm PO DAILY 11/21/20 [History] Metoprolol Tartrate [Lopressor] 12.5 mg PO BID 11/21/20 [History] Sertraline [Zoloft] 50 mg PO DAILY 11/21/20 [History] Tamsulosin HCl [Flomax] 0.4 mg PO HS 11/21/20 [History] Pantoprazole Sodium [Protonix] 40 mg PO AC-BRKFST #30 tablet. 11/25/20 [Rx] Follow up Appointment(s)/Referral(s): Sonali Barr MD [STAFF PHYSICIAN] - 1 Week Deshawn Bajwa MD [Primary Care Provider] - 1-2 days Discharge Disposition: TRANSFER TO SNF/ECF
--- NOTE | 2020-11-25 13:22 | P.PN ---
Subjective Progress Note Date: 11/25/20 Principal diagnosis: Acute lower GI bleed An 89-year-old who came in with an acute lower GI bleed, diverticular nature status post EGD and colonoscopy 2 days ago. Colonoscopy revealed actively bleeding sigmoid diverticulosis, status post injection of epinephrine with Endo Clip placement. Hemostasis was achieved the patient has had no further bleeding. Hemoglobin is stable at 9.8. She had a bowel movement today which was normal, denies any nausea, vomiting or abdominal pain. Objective - Vital Signs Vital signs: Vital Signs Temp 97.6 F 11/25/20 08:00 Pulse 89 11/25/20 08:00 Resp 18 11/25/20 08:00 BP 143/65 11/25/20 08:00 Pulse Ox 97 11/25/20 08:00 Intake & Output 11/24/20 11/25/20 11/25/20 18:59 06:59 18:59 Intake Total 1728 300 240 Output Total 300 500 Balance 1428 -200 240 Weight 71.6 kg Intake: Intake, IV Titration 600 Amount Sodium Chloride 0.9% 1, 600 000 ml @ 75 mls/hr IV . [id number] [facility] Rx#:[id number] Oral 818 300 240 Blood Product 310 Rc As-1 Unit 310 [id number] Output: Urine 300 500 Other: Voiding Method Bedside Commode Bedside Commode Bedside Commode # Voids 1 - Exam General appearance: The patient is alert, oriented, appears in no acute distress. HET: Head is normocephalic and atraumatic. Conjunctiva pink. Sclera anicteric. Neck: Supple without lymphadenopathy. Abdomen: Soft, nontender, nondistended with bowel sounds. No guarding or rigidity. Extremities: Normal skin color and turgor. No pedal edema Skin: No rashes, no jaundice Neurological: No focal deficits. Alert and oriented 3. - Labs CBC & Chem 7: 11/25/20 08:31 11/25/20 08:50 Labs: Abnormal Lab Results - Last 24 Hours (Table) 11/21/20 11/24/20 11/24/20 Range/Units 22:20 11:08 11:08 RBC 2.20 L (3.80-5.40) m/uL Hgb 7.1 L (11.4-16.0) gm/dL Hct 20.0 L (34.0-46.0) % Sodium 131 L (137-145) mmol/L Potassium 3.2 L (3.5-5.1) mmol/L Carbon Dioxide 19 L (22-30) mmol/L Calcium 8.2 L (8.4-10.2) mg/dL Crossmatch See Detail 11/25/20 Range/Units 08:31 RBC 3.10 L (3.80-5.40) m/uL Hgb 9.8 L D (11.4-16.0) gm/dL Hct 28.9 L (34.0-46.0) % Sodium (137-145) mmol/L Potassium (3.5-5.1) mmol/L Carbon Dioxide (22-30) mmol/L Calcium (8.4-10.2) mg/dL Crossmatch Assessment and Plan Assessment: Acute lower GI bleed, diverticular nature, status post EGD and colonoscopy. Colonoscopy revealed actively bleeding sigmoid diverticulosis, status post injection of epinephrine with Endo Clip placement. Hemostasis was achieved. Patient's had no further bleeding. (1) Acute GI bleeding Current Visit: Yes Status: Acute Code(s): K92.2 - GASTROINTESTINAL HEMORRHAGE, UNSPECIFIED SNOMED Code(s): 52139579 Plan: 1. Symptomatic and supportive care 2. Advance to regular diet 3. The patient may be discharged home from a gastroenterology standpoint Thank you for this consultation. Dr. Phoenix Barr I agree with the dictator's note, documented as a scribe by Shani Darby.
== END 2020-11-25 14:54 | DRG 378 ==
LOC: EC 20:25 → 3SCARD 22:09
PROVIDERS: ADMIT Hospitalist; ATTEND Hospitalist
PROC: 30233N1 Transfusion of Nonautologous Red Blood Cells into Peripheral Vein, Percutaneous Approach (ICD-10-PCS; 2020-11-22)
PROC: 3E0H8GC Introduction of Other Therapeutic Substance into Lower GI, Via Natural or Artificial Opening Endoscopic (ICD-10-PCS; principal; 2020-11-23 08:35)
PROC: 0DB78ZX Excision of Stomach, Pylorus, Via Natural or Artificial Opening Endoscopic, Diagnostic (ICD-10-PCS; principal; 2020-11-23 08:35)
PROC: 0W3P8ZZ Control Bleeding in Gastrointestinal Tract, Via Natural or Artificial Opening Endoscopic (ICD-10-PCS; principal; 2020-11-23 08:35)
DX: K57.31 Diverticulosis of large intestine without perforation or abscess with bleeding (principal); D62 Acute posthemorrhagic anemia; E78.5 Hyperlipidemia, unspecified; I10 Essential (primary) hypertension; K25.9 Gastric ulcer, unspecified as acute or chronic, without hemorrhage or perforation; Z79.82 Long term (current) use of aspirin; Z79.899 Other long term (current) drug therapy; Z87.440 Personal history of urinary (tract) infections; Z82.49 Family history of ischemic heart disease and other diseases of the circulatory system; Z20.822 Contact with and (suspected) exposure to COVID-19; Z88.5 Allergy status to narcotic agent; Z91.018 Allergy to other foods; F41.9 Anxiety disorder, unspecified; F32.9 Major depressive disorder, single episode, unspecified
CPT/HCPCS: 36415; 43239; 44404; 45382; 80048; 84132; 85025; 85027; 86850; 86900; 86901; 86920; 87635; 88305; 88342; 93005; 99285